=== PATIENT | female | born 1940 | race Caucasian/White ===

== ENCOUNTER 2017-01-26 22:03 | Emergency (ER) | payer MEDICARE ==
[~2017-01-26 22:03] MED LIST: ALPHAGAN OPH; ARTHRITIS CREAM TOP; ASAB PO; ATEN25 PO; FLEXERIL5 MG PO; HALF81 PO; MIACALCIN NAS; NEXIUM OTC PO; NEXIUM20 M1 PO; NEXIUM40 PO; P5 PO; PRAVACHOL80 MG PO; PROLIA60 MG/1 ML SC; SYSTANE OP; VITC500 PO; VITD PO; XALAT OPH; ZOCOR10 PO; ZOCOR40 PO
[2017-01-26 22:47] LABS: BASOPHILS 0.1 %; BASOPHILS ABSOLUTE 0.02 10/3/uL (0.0-0.16); EOSINOPHILS 0 %; ER CBC TAT 0 Hrs 08 Mins; HEMATOCRIT 39.5 % (36.0-48.0); IMMATURE GRANULOCYTES 0.2 %; IMMATURE GRANULOCYTES ABSOLUTE 0.03 10/3/uL (0.0-0.11); LYMPHOCYTES 7.1 %; LYMPHOCYTES ABSOLUTE 1.06 10/3/uL (0.67-4.30); MEAN CORPUS HGB CONC 32.9 g/dL (32.0-36.0); MEAN CORPUSCULAR HEMOGLOB 29.1 pg (26.0-34.0); MEAN PLATELET VOLUME 9.4 fL (9.2-13.0); MONOCYTES 4.6 %; MONOCYTES ABSOLUTE 0.68 10/3/uL (0.21-1.20); NEUTROPHILS ABSOLUTE 13.07 10/3/uL (2.02-8.40); PLATELET COUNT 320 10/3/uL (150-400); RBC DISTRIBUTION WIDTH 13.7 % (12.0-16.0); RED CELL COUNT 4.47 10/6/uL (4.0-5.6); WHITE BLOOD CELLS 14.9 10/3/uL (4.5-10.5)
[2017-01-26 22:49] LABS: MANUAL DIFF NO %; MEAN CORPUSCULAR VOLUME 88.4 fL (80-100)
[2017-01-26 23:03] LABS: A/G RATIO 0.9 (0.7-1.9); ALBUMIN 3.1 G/DL (3.5-5.0); BUN (BLOOD UREA NITROGEN) 16 MG/DL (6-23); CALCIUM, SERUM 8.7 MG/DL (8.5-10.4); CHLORIDE, SERUM 98 MMOL/L (96-112); CO2 (CARBON DIOXIDE) 29 MMOL/L (24-34); CREATININE 0.72 MG/DL (0.55-1.02); GFR AFRICAN AMERICAN 92 ML/MIN (>=60); GFR NON AFRICAN AMERICAN 80 ML/MIN (>=60); GLOBULIN 3.3 G/DL (2.5-4.1); POTASSIUM, SERUM 3.2 MMOL/L (3.5-5.3); SGOT(AST) 19 U/L (5-40); SGPT(ALT) 21 U/L (5-65); TOTAL BILIRUBIN 0.6 MG/DL (0-1.2); TOTAL PROTEIN 6.4 G/DL (6.0-8.5); TROPONIN I <0.02 NG/ML (<0.05)
[2017-01-26 23:04] LABS: ALKALINE PHOSPHATASE 112 U/L (45-117); GLUCOSE, SERUM 133 MG/DL (60-99); SODIUM, SERUM 135 MMOL/L (135-148)
[2017-01-27 00:33] LABS: ASCORBIC ACID (UR NOT ORDER) NEG (NEG); BILIRUBIN, URINE NEGATIVE (NEG); ER URINALYSIS TAT 0 Hrs 28 Mins; KETONE, URINE TRACE MG/DL (NEG); LEUKOCYTE ESTERASE(NOT OR MOD (NEG); NITRITE (URINE) NEG (NEG); WBC (NOT ORDERED) (RFLEX) 23 (0-5)
[2017-07-16] MEDS ORDERED: VITAMIN B-122500 MCG SL (09:19)
== END 2017-01-27 02:02 | disposition home or self-care (01) ==
LOC: ER 22:03
PROVIDERS: Emergency Medicine
DX: N39.0 Urinary tract infection, site not specified (principal); I10 Essential (primary) hypertension; Z95.1 Presence of aortocoronary bypass graft; Z79.82 Long term (current) use of aspirin; Z79.899 Other long term (current) drug therapy
CPT/HCPCS: 70450; 71020; 80048; 80053; 81001; 83735; 84484; 85025; 85610; 85730; 87040; 87077; 87086; 87186; 93005; 96374; 99285; J0360

== ENCOUNTER 2017-03-06 13:32 | Inpatient (IN) | payer MEDICARE ==
--- NOTE | ~2017-03-06 | HP ---
History And Physical [place] [id number] [place]. [address] NAME: ANGEL JAMIL : 38 STATUS : ADM Radha PAT#: [id number] AGE: 77 ADM/REG DATE : 03/06/17 MR#: [id number] REPORT SERV DATE: 03/07/17 DICTATED BY: BERKLEY WIHTLOCK DATE: 03/06/17 REPORT STATUS : Draft TRANSCRIBED BY: MODL DATE: 03/06/17 DATE OF ADMISSION: 03/06/2017 IDENTIFYING DATA: A 77-year-old white female, whose PCP is Dr. Ankur Naranjo; marketing data specialist, Dr. Ca; GI, Dr. Mendoza; Ear, Nose, and Throat, Dr. Nam; and carpenter general, Dr. Dan. CHIEF COMPLAINT: Confusion. HISTORY OF PRESENT ILLNESS: This history of present illness is obtained by talking to the patient as well as the son and daughter at bedside as well as the ER provider and reviewing [employer] and [employer]. The patient's son states that on 01/26/2017, the patient was seen here in the emergency room for confusion. I asked him to describe the confusion. He states that his mom had been talking about relatives as if they were alive and asking about them. She also was talking about events that were from long ago as if they were recent, and she had a bad headache and she was very weak. At that time, he says she was diagnosed with high blood pressure and a urinary infection. She was given some antibiotic. He does not recall which one, and by the next day, she was lying on the couch. He saw her having sudden shakiness all over, face drawn to the left, not breathing. He did some CPR. He thinks her episode lasted less than 10 minutes. 911 took her to the ER at [facility] where she reportedly awoke slowly, was confused, pulling her IV out. They describe she was in the neuro ICU initially and had some scans of her brain. They said there was a small little spot in the brain, and when I asked him if it was described as a meningioma such as our CT brain here mentions today, they said yes. They were reportedly told by the staff at [facility] that this small lesion in the brain would not likely cause this problem. She was started on Keppra and blood pressure medicine, lisinopril. She was released home with home health nurse and physical therapy, did okay for a couple of weeks, then for the last week or so once again confused, talking about things from the past. They send in a urinalysis, and they were told it was okay. The patient never had dysuria for the current episode nor the first one as far as the urinary tract infection. Today, on the phone and in person, they stated it was hard to understand some of her speech and she seemed to have a difficult time getting sentences out. They brought to the emergency room because of this. On question, over the last few years, she has had a generalized cognitive decline. She has not been allowed by them to drive for couple of years, has not been able to cook for quite some time. She is just too weak to get up and around, has not been able to pay her own bills for the last two years because she would misplace them and not keep up with them. She has not been able to be in control of her medications for the last year and a half because according to the daughter she just could not keep up with her pills. She can still dress herself most of the time, although it sounds like they assist her some. She bathes herself. She goes to and from the bathroom. On review of systems, she has chronic back pain, constipation, and some chronic peripheral History And Physical [address] [place]. [address] NAME: ANGEL JAMIL : 38 STATUS : ADM Radha PAT#: [id number] AGE: 77 ADM/REG DATE : 03/06/17 MR#: [id number] REPORT SERV DATE: 03/07/17 DICTATED BY: BERKLEY WHITLOCK DATE: 03/06/17 REPORT STATUS : Draft TRANSCRIBED BY: DAIN DATE: 03/06/17 edema. They describe she has lost about 20 pounds in the last year. She has had a couple of falls lately. They deny any fever, cough, nasal congestion, chest pain, shortness of breath, abdominal pain, nausea, vomiting, diarrhea, rectal bleeding, melena, dysuria, urinary hesitancy, rash, or tick bites. She has been anorexic for three days. PAST MEDICAL HISTORY: No known drug allergies. They deny any history of diabetes, asthma, COPD, stroke, peptic ulcer, liver disease, chronic kidney disease, kidney stones, or thyroid disease. She has had coronary bypass in 1995 and a CTA of her coronary arteries in 05/2011 showed some loss of saphenous vein grafts and questionable obstruction to the LITTLE to the LAD. She has a history of scoliosis, osteoporosis, and rheumatoid arthritis. She has hypertension but only for the last month. HOME MEDICATIONS: Currently, aspirin 81 mg daily; Tenormin 25 mg every evening, reportedly this is not a new medicine; brimonidine 0.2% one drop both eyes b.i.d.; vitamin B12 of 2500 mcg daily; Flexeril 10 mg every bedtime; Cymbalta 30 mg daily; vitamin D 50,000 units every other Saturday; Nexium 20 mg daily; Keppra 500 mg b.i.d.; lisinopril 20 mg daily, which was a medication that was recently started when she was at [facility]; Centrum vitamin once a day; Deltasone; prednisone 10 mg daily, which is a chronic stable dose; Forteo 20 mcg subcu every evening; and tramadol 50 mg p.o. b.i.d. SURGICAL HISTORY: She has had coronary bypass, cholecystectomy, rotator cuff repair, the patient has no recollection of which shoulder; and she has had a prior hysterectomy she thinks. SOCIAL HISTORY: She currently lives with family. They are staying with her 27/05. She is retired from the [employer]. 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 She has no tobacco or alcohol intake history. She has been using a walker recently. FAMILY HISTORY: Mother reportedly of a heart attack. Dad with stroke and a heart attack. This information is provided by the daughter as the patient had no recollection. The patient's siblings with report of a high heart attack, breast cancer, and multiple myeloma. Her children with PRATHER and myocardial infarction, although again the patient had no recollection of this herself. The daughter provided me this information. DIAGNOSTIC DATA: Chest x-ray as a PA and lateral appears unremarkable other than evidence of previous sternotomy per my interpretation. EKG done today at 1351 reveals sinus rhythm with T-wave inversions V1 through V4, and I and aVL but similar to EKG on 01/26/2017 per my interpretation. Sodium 142, potassium 3.2, chloride 103, CO2 is 32, BUN 24, creatinine 0.94, glucose 105, calcium 9.9, and albumin 3.0. The rest of the CMP is normal. Troponin less than 0.02. White count is 14.7, hemoglobin 12.6, and platelets are 363,000. Urinalysis tonight as a clean catch, urobilinogen is 4, it is otherwise normal. History And Physical [address] [place]. [address] NAME: ANGEL JAMIL : 38 STATUS : ADM Radha PAT#: [id number] AGE: 77 ADM/REG DATE : 03/06/17 MR#: [id number] REPORT SERV DATE: 03/07/17 DICTATED BY: BERKLEY WHITLOCK DATE: 03/06/17 REPORT STATUS : Draft TRANSCRIBED BY: DAIN DATE: 03/06/17 PHYSICAL EXAMINATION: VITAL SIGNS: Temp 98, pulse 70, respirations 16, blood pressure 115/70, and O2 saturation is 97% on room air. GENERAL: A well-developed, older female, who appears in no acute distress. HEENT: Head is atraumatic. Pupils are equal, round, and reactive to light. Extraocular motions are intact. No scleral icterus noted. Ears, externally unremarkable. No inflammatory changes. Normal canals and TMs at this time. Nose, noninflamed externally. Septum midline. Nares patent. Mouth, moist. Good gag. No redness of the throat, gums, or lips. NECK: Supple. No lymph node or thyroid enlargement. The carotids have good pulses. No bruits. LUNGS: Clear. Good air flow. No wheezes, no rhonchi. Normal respiratory effort. HEART: Regular rate and rhythm without murmur, gallop, click, or rub. ABDOMEN: Bowel sounds are positive. Soft, nondistended, nontender. No masses. No organomegaly. EXTREMITIES: Warm, good pulses. No clubbing, no cyanosis, no edema. No actively inflamed skin or joints. NEUROLOGIC: She is alert. She is oriented to her full name. She remembered that she was at [facility], but it took her a moment to come up with that. She was able to give me the month, but when I asked her the year, she kept giving me the month that were different from the current one. Her motor strength is 3/5 in all four extremities and symmetrical. No Babinski. No clonus noted. Cranial nerves 2 through 12 grossly normal. ASSESSMENT: 1. 1-1/2 to 2 years of progressive memory loss, cognitive decline with a recent seizure, described by family, and intermittent worsening of her confusion with possible some speech difficulties today. It sounds like this is progressive underlying dementia with the possibility of some seizures as part of that less likely an acute stroke. 2. Hypokalemia. 3. Leukocytosis without a clear etiology. 4. See past medical history. PLAN: We will put her on observation status. We will get the recent [facility] records. We will ask Neurology to see her. We will check a couple of blood cultures. We will check a sedimentation rate and a CRP. We will also get a followup on that white count. We will check B12, HIV, ammonia level, RPR, sedimentation rate, CRP. Son and daughter updated at the bedside at this time. RSG/MODL Berkley Whitlock M.D. / [id number] History And Physical [address] [address] NAME: ANGEL JAMIL : 38 STATUS : ADM Radha PAT#: [id number] AGE: 77 ADM/REG DATE : 03/06/17 MR#: [id number] REPORT SERV DATE: 03/07/17 DICTATED BY: BERKLEY WHITLOCK DATE: 03/06/17 REPORT STATUS : Draft TRANSCRIBED BY: MODL DATE: 03/06/17 CC: Diego Self Jr, MD Patrick Ryan
--- NOTE | ~2017-03-06 | CN ---
Consultation Report [facility] [address] [place]. [address] NAME: ANGEL JAMIL : 38 STATUS : ADM IN [facility]#: [id number] AGE: 77 ADM/REG DATE : 03/07/17 MR#: [id number] REPORT SERV DATE: 03/07/17 DICTATED BY: DATE: REPORT STATUS : Draft TRANSCRIBED BY: MODL DATE: 03/07/17 DATE OF CONSULTATION: 03/07/2017 REASON FOR CONSULT: Encephalopathy. HISTORY OF PRESENT ILLNESS: This is a 77-year-old female who presented to [facility] secondary to ongoing encephalopathy. The patient roughly about a month ago was noted to have encephalopathy with delusional thought as well as possible hallucination. Also, the patient was noted to have loss of consciousness and shaking all over and not breathing and the patient's son performed CPR while awaiting EMS arrival where the patient's symptoms lasted less than 10 minutes. The patient was taken over to [facility] and was initially stayed in the neuro intensive care. The patient was subsequently diagnosed with possible seizure and was placed on Keppra with improvement of symptom and subsequently discharged. The patient was also noted to have a meningioma at that time. After hospital discharge, the patient was not noted to have stable mentation for about two weeks and was noted to have a gradual return of confusion as well as encephalopathy and hallucination where the patient keeps on talking about people who are as well as appeared to have seeing things. The patient was not noted to have any significant changes in medication recently except for initiation of lisinopril as well as Keppra. The patient was not noted to have any fever, chill, nausea, vomiting, chest pain, or shortness of breath prior to the hospitalization. The patient's son does report the patient for the past year does appear to have memory difficulties with the combination of long-term memory with the patient forgetful of things that happened in the past as well as recent memory. The patient has not been driving for the past two years secondary to previous surgery in the past. Afterwards, the patient's family drives her around. The patient's son manages the patient's finances. The patient does still cook at home and has recently been doing some marie. The patient does have ambulatory difficulties where the patient normally ambulates with a walker, but recently seems to be getting worse and appeared to have bilateral lower extremity weakness with the right leg appeared to be weaker than the left. No upper extremity weakness was otherwise noted at the time of evaluation. The patient's son also reports the patient appeared to have difficulty getting words out, but does not seem to have significant dysarthria. PAST MEDICAL HISTORY: Significant for history of recent [place] hospitalization with possible history of seizure as well as cognitive difficulties over the past year. The patient was noted to have also history of coronary artery disease, history of scoliosis, osteoporosis, rheumatoid arthritis, hypertension. REVIEW OF SYSTEMS: Negative except for those mentioned in the HPI. SOCIAL HISTORY: Denies tobacco, alcohol, or recreational drug usage. The patient ambulates with a walker normally. FAMILY HISTORY: Significant for coronary artery disease, stroke, myocardial infarction, Consultation Report [address] [place]. [address] NAME: ANGEL JAMIL : 38 STATUS : ADM IN [facility]#: [id number] AGE: 77 ADM/REG DATE : 03/07/17 MR#: [id number] REPORT SERV DATE: 03/07/17 DICTATED BY: DATE: REPORT STATUS : Draft TRANSCRIBED BY: MODL DATE: 03/07/17 breast cancer, and multiple myeloma. ALLERGIES: AT THE TIME OF EVALUATION, THE PATIENT WAS NOTED TO HAVE NO KNOWN DRUG ALLERGIES. MEDICATIONS: The patient's home medications consist of Keppra, lisinopril, aspirin, atenolol, brimonidine ophthalmic solution, vitamin B12, Flexeril, Cymbalta, vitamin D, Nexium, multivitamin, prednisone 10, Forteo pen subcutaneous, and Ultram. REVIEW OF SYSTEMS: Unable to be provided by the patient's secondary to encephalopathy, but per family, it is otherwise negative. PHYSICAL EXAMINATION: VITAL SIGNS: At the time of evaluation, the patient was noted to have overnight vital signs with a T-max of 98.2, heart rate of 55 to 72, respirations of 16 to 18, and blood pressure of 142-190/65-98. GENERAL: Alert, well developed, well nourished, in no acute distress. CARDIOVASCULAR: Regular rate and rhythm. No carotid bruits were otherwise auscultated. PULMONARY: Clear to auscultation bilaterally. NEUROLOGIC: Generally, the patient is alert, oriented to place, not to year, oriented to month. The patient initially reports she does not recognize her son and subsequently was able to recognize her son at the time of evaluation. The patient was noted to have a minimal dysarthria. No significant aphasia. Decreased attention span at the time of evaluation. Psychomotor retardation was also noted. Difficulty to follow-through on commands for registration and recall. She is able to follow simple commands and has difficulties with complex commands at the time of evaluation. Cranial nerves II through XII, pupils are equal, round, and reactive to light. Horizontal eye movement was noted to be intact with intact blink to threat response. Reports symmetrical facial sensation, but is otherwise unable to provide details. Midline tongue. Normal palatal movement. Mildly decreased hearing in bilateral ears. The patient was noted to have symmetrical facial expression. The patient demonstrated decreased range of motion in the right shoulder, which the patient as well as the patient's son report secondary to recent falls, otherwise, the patient demonstrated 4+ to 5-/5 for left upper extremity strength. No clear resting tremor was otherwise noted. The patient reports symmetrical sensation bilaterally. Reports mild asymmetric sensation in bilateral lower extremities, but she is noted to have difficulties reporting details. Appeared to have some decreased sensation compared to bilateral upper extremities and lower extremities. The patient demonstrated ability to move bilateral lower extremities against gravity roughly equally, otherwise, demonstrated no significant ataxia on bilateral upper extremities. Yeidrh-bd-bitl examination, gait was not evaluated as the patient normally ambulates with a walker. Deep tendon reflexes were 2+ in bilateral upper extremities, 1+ in bilateral lower extremities. Downgoing toes on bilateral plantar reflexes. LABORATORY STUDIES: Demonstrated white blood cell count of 9.5, hemoglobin of 11.1, hematocrit of 34.2, platelet count of 327. Chemistry panel: Sodium 146, potassium 2.9, Consultation Report [place] [id number] [facility] [place]. [address] NAME: ANGEL JAMIL : 38 STATUS : ADM IN [facility]#: [id number] AGE: 77 ADM/REG DATE : 03/07/17 MR#: [id number] REPORT SERV DATE: 03/07/17 DICTATED BY: DATE: REPORT STATUS : Draft TRANSCRIBED BY: MODL DATE: 03/07/17 chloride 107, bicarb 31, BUN of 20, creatinine 0.81, glucose of 103, calcium of 8.9, magnesium 1.5. Serum vitamin B12 of 2124. Ammonia level of 11. TSH of 0.644. C-reactive protein of 11.1. Sed rate of 17. Urinalysis demonstrated negative leukocyte esterase and negative nitrites. IMAGING: CT scan of the brain demonstrated mild generalized atrophy as well as possible meningioma, but otherwise no acute process was seen. IMPRESSION: Encephalopathy with recent episodes of hallucination as well as confusion, hospitalized at [place] roughly a month ago, and placed on Keppra for presumed seizures with symptom improve for two weeks and subsequently recurred. Concern for also baseline dementia. Differential diagnosis includes possible baseline dementia with seizure versus dementia versus behavior issues versus encephalopathy of unknown etiology, so we will check laboratory study, EEG, MRI of the brain with and without contrast. We will start the patient on trial of Aricept 5 mg p.o. at bedtime. The patient was also noted to be on long- term prednisone dose and was noted to have recent recurrent encephalopathy. We will also consider possible lumbar puncture if other diagnostic study does not reveal any etiology for the patient's confusion. RECOMMENDATION: 1. MRI of the brain with and without contrast. 2. PT/OT to evaluate and treat. 3. EEG. 4. Serum RPR, HIV, thiamine, folate, TSH, free T4, CRP, sed rate, JACLYN, as well as procalcitonin level. 5. Aricept 5 mg p.o. at bedtime. 6. May consider lumbar puncture. [facility]/MODL Toni Chatterjee MD / [id number] CC: Diego Self Jr, MD Patrick Rhyne, M.D.
--- NOTE | ~2017-03-06 | DS ---
Discharge Summary [facility] [address] [facility] [place]. [address] NAME: ANGEL JAMIL : 38 STATUS : ADM IN [facility]#: [id number] AGE: 77 ADM/REG DATE : 03/07/17 MR#: [id number] REPORT SERV DATE: 03/13/17 DICTATED BY: KINGSLEY KATZ DATE: 03/12/17 REPORT STATUS : Draft TRANSCRIBED BY: MODAldo DATE: 03/12/17 ADMISSION DATE: 03/07/2017 DISCHARGE DATE: 03/12/2017 PROCEDURES DONE: 1. 03/06/2017, CT of the brain without contrast, no acute intracranial pathology identified. Moderate diffuse cerebral involutional changes and mild deep white matter chronic microvascular ischemic change. 2. 03/06/2017, CT chest x-ray, PA and lateral, prior CABG. No acute process demonstrated. 3. 03/07/2017, MRI of the brain, chronic small vessel ischemic changes and atrophy minimally progressed from 2016. No acute finding. Stable meningioma arising from the midline region of the anterior clinoids. 4. 03/08/2017, x-ray spine, successful fluoroscopic lumbar puncture at L3-L4 with 11 mL of clear CSF collected, as described, opening pressure 4 cm of water. 5. 03/07/2017, EEG report shows EEG study obtained during awake and drowsy state may be considered abnormal secondary to presence of underlying background slowing as well as disorganized background concern for possible metabolic encephalopathy versus underlying EVENT DECORATOR abnormalities versus possible postictal state. Clinical correlation recommended. CONSULT: Dr. Chatterjee for Neurology. REASON FOR ADMISSION: Confusion. HISTORY OF HOSPITAL STAY: A 77-year-old white female with past medical history of hypertension, depression, seizures, history of rheumatoid arthritis on steroids, coronary artery disease, status post CABG, presenting with confusion. The patient was being admitted for further evaluation and confusion. CT of the head was negative as well as MRI. More importantly, there was a question if the patient is having questionable new onset of seizures. EEG was done which was questionable. Nonetheless, the patient was continued on her Keppra. More importantly, the patient is demonstrating symptoms of dementia. The patient was started on Aricept and thiamine. In addition, the patient was also developing cough with her lisinopril. She was switched to valsartan 80 mg p.o. daily. At which point, the patient's blood pressure has been stable. At this point in time, the patient is discharged for physical therapy. In addition, the patient has been advised to follow up with [facility] within three to four weeks as well as follow up with primary care within two weeks' time. MEDICATION UPON DISCHARGE: 1. Aspirin 81 mg daily. 2. Tenormin 25 mg p.o. daily. 3. Brimonidine 0.2 ophthalmic drops one drop ophthalmic both eyes b.i.d. 4. Vitamin B12 2500 mcg p.o. daily. 5. Cymbalta 30 mg p.o. daily. 6. Vitamin D 50,000 units p.o. q.14 days. 7. Forteo 20 mcg subcu daily. 8. Keppra 500 mg b.i.d. Discharge Summary [address] [address] NAME: ANGEL JAMIL : 38 STATUS : ADM IN [facility]#: [id number] AGE: 77 ADM/REG DATE : 03/07/17 MR#: [id number] REPORT SERV DATE: 03/13/17 DICTATED BY: KINGSLEY KATZ DATE: 03/12/17 REPORT STATUS : Draft TRANSCRIBED BY: DAIN DATE: 03/12/17 9. Melatonin 5 mg p.o. at bedtime. 10.Nexium 20 mg p.o. daily. 11.Thiamine 100 mg p.o. b.i.d. 12.Valsartan 80 mg p.o. daily. 13.Prednisone 10 mg p.o. daily. 14.Tylenol 650 mg p.o. q.4 hours p.r.n. 15.Flexeril 10 mg p.o. at bedtime. 16.Colace 100 mg p.o. b.i.d. 17.Senna 2 tabs p.o. at bedtime p.r.n. DIAGNOSES UPON DISCHARGE: 1. Confusion secondary to dementia. 2. Dementia. 3. History of seizures, on Keppra. 4. Rheumatoid arthritis. 5. History of coronary artery disease, status post coronary artery bypass graft. 6. Hypertension. [facility]/DAIN Kingsley Katz MD / [id number] CC: MD Ankur Delgado M.D.
--- NOTE | ~2017-03-06 | EEG ---
Electroencephalogram [place] [id number] [place]. [address] NAME: ANGEL JAMIL : 38 STATUS : ADM IN PAT#: [id number] AGE: 77 ADM/REG DATE : 03/07/17 MR#: [id number] REPORT SERV DATE: 03/07/17 DICTATED BY: DATE: REPORT STATUS : Draft TRANSCRIBED BY: MODL DATE: 03/07/17 NEUROLOGY EEG REPORT CLINICAL INDICATION: Encephalopathy. DESCRIPTION: This EEG was performed using 10/20 electrode placement system. During the EEG study, symmetric background activity was noted with a predominant occipital rhythm of roughly 7 to 8 hertz. Underlying delta slowing was also seen during the EEG study. In addition, disorganized EEG background was observed during the entire EEG study. Photic stimulation was performed. No clear driving response was otherwise noted. Hyperventilation was not performed during the EEG study secondary to the patient's mental status as well as underlying medical condition. The patient achieved drowsy state during the EEG study. No electrographic seizure was otherwise noted. No focal abnormality was seen. INTERPRETATION: This EEG study obtained during awake and drowsy state may be considered abnormal secondary to presence of underlying background slowing as well as disorganized background concerning for possible metabolic encephalopathy versus underlying STATION REPAIRER abnormalities versus possible postictal state. Clinical correlation is recommended. [facility]/DAIN Toni Chatterjee MD / [id number] CC: Diego Self Jr, MD Patrick Rhyne, M.D.
[2017-03-06 14:11] LABS: BASOPHILS 0.3 %; BASOPHILS ABSOLUTE 0.04 10/3/uL (0.0-0.16); EOSINOPHILS 0.3 %; EOSINOPHILS ABSOLUTE 0.05 10/3/uL (0.0-0.53); ER CBC TAT 0 Hrs 09 Mins; HEMATOCRIT 39.8 % (36.0-48.0); HEMOGLOBIN 12.6 g/dL (12.0-16.0); IMMATURE GRANULOCYTES 0.3 %; IMMATURE GRANULOCYTES ABSOLUTE 0.04 10/3/uL (0.0-0.11); LYMPHOCYTES ABSOLUTE 0.89 10/3/uL (0.67-4.30); MANUAL DIFF NO %; MEAN CORPUS HGB CONC 31.7 g/dL (32.0-36.0); MEAN CORPUSCULAR VOLUME 91.7 fL (80-100); MEAN PLATELET VOLUME 9.2 fL (9.2-13.0); MONOCYTES 4.3 %; MONOCYTES ABSOLUTE 0.63 10/3/uL (0.21-1.20); NEUTROPHILS 88.8 %; NEUTROPHILS ABSOLUTE 13.08 10/3/uL (2.02-8.40); PLATELET COUNT 363 10/3/uL (150-400); RBC DISTRIBUTION WIDTH 14.1 % (12.0-16.0); RED CELL COUNT 4.34 10/6/uL (4.0-5.6); WHITE BLOOD CELLS 14.7 10/3/uL (4.5-10.5)
[2017-03-06 14:25] LABS: ALKALINE PHOSPHATASE 103 U/L (45-117); CALCIUM, SERUM 9.9 MG/DL (8.5-10.4); CHLORIDE, SERUM 103 MMOL/L (96-112); CO2 (CARBON DIOXIDE) 32 MMOL/L (24-34); CREATININE 0.94 MG/DL (0.55-1.02); GFR AFRICAN AMERICAN 67 ML/MIN (>=60); GFR NON AFRICAN AMERICAN 58 ML/MIN (>=60); GLOBULIN 3.1 G/DL (2.5-4.1); GLUCOSE, SERUM 105 MG/DL (60-99); POTASSIUM, SERUM 3.2 MMOL/L (3.5-5.3); SGOT(AST) 13 U/L (5-40); SGPT(ALT) 17 U/L (5-65); SODIUM, SERUM 142 MMOL/L (135-148); TOTAL BILIRUBIN 0.4 MG/DL (0-1.2); TOTAL PROTEIN 6.1 G/DL (6.0-8.5); TROPONIN I <0.02 NG/ML (<0.05)
[2017-03-06 14:26] LABS: BUN (BLOOD UREA NITROGEN) 24 MG/DL (6-23)
[2017-03-06 15:51] LABS: ASCORBIC ACID (UR NOT ORDER) NEG (NEG); BILIRUBIN, URINE NEGATIVE (NEG); ER URINALYSIS TAT 0 Hrs 27 Mins; KETONE, URINE NEGATIVE (NEG); LEUKOCYTE ESTERASE(NOT OR NEG (NEG); NITRITE (URINE) NEG (NEG); WBC (NOT ORDERED) (RFLEX) < 1 (0-5)
[2017-03-06] MEDS ORDERED: ULTRAM50 PO (16:49)
[2017-03-06] MEDS ORDERED: P10 PO (16:49)
[2017-03-06] MEDS ORDERED: NEXIUM20 M1 PO (16:49)
[2017-03-06] MEDS ORDERED: KEPPRA500 PO (16:50)
[2017-03-06] MEDS ORDERED: PRIN20 PO (16:50)
[2017-03-06] MEDS ORDERED: CYMBALTA30 PO (16:50)
[2017-03-06] MEDS ORDERED: ASAB PO (16:50)
[2017-03-06] MEDS ORDERED: ATEN25 PO (16:51)
[2017-03-06] MEDS ORDERED: CENTRUM PO (16:51)
[2017-03-06] MEDS ORDERED: FLEX PO (16:51)
[2017-03-06] MEDS ORDERED: FORTEO SC (16:52)
[2017-03-06] MEDS ORDERED: VITD PO (16:52)
[2017-03-06] MEDS ORDERED: BRIMONIDINE0.2 % OPH (16:52)
[2017-03-06] MEDS ORDERED: CYANO1000T PO (16:54)
[2017-03-07 04:06] LABS: BASOPHILS 0.3 %; BASOPHILS ABSOLUTE 0.03 10/3/uL (0.0-0.16); EOSINOPHILS 0.9 %; EOSINOPHILS ABSOLUTE 0.09 10/3/uL (0.0-0.53); HEMOGLOBIN 11.1 g/dL (12.0-16.0); IMMATURE GRANULOCYTES 0.2 %; IMMATURE GRANULOCYTES ABSOLUTE 0.02 10/3/uL (0.0-0.11); LYMPHOCYTES 16.8 %; MEAN CORPUS HGB CONC 32.5 g/dL (32.0-36.0); MEAN CORPUSCULAR HEMOGLOB 29.1 pg (26.0-34.0); MEAN CORPUSCULAR VOLUME 89.5 fL (80-100); MEAN PLATELET VOLUME 9.1 fL (9.2-13.0); MONOCYTES 7.4 %; MONOCYTES ABSOLUTE 0.71 10/3/uL (0.21-1.20); NEUTROPHILS 74.4 %; NEUTROPHILS ABSOLUTE 7.09 10/3/uL (2.02-8.40); PLATELET COUNT 327 10/3/uL (150-400); RBC DISTRIBUTION WIDTH 14.2 % (12.0-16.0); RED CELL COUNT 3.82 10/6/uL (4.0-5.6); WHITE BLOOD CELLS 9.5 10/3/uL (4.5-10.5)
[2017-03-07 04:07] LABS: HEMATOCRIT 34.2 % (36.0-48.0); MANUAL DIFF NO %
[2017-03-07 05:18] LABS: CHLORIDE, SERUM 107 MMOL/L (96-112); CO2 (CARBON DIOXIDE) 31 MMOL/L (24-34); CREATININE 0.81 MG/DL (0.55-1.02); GFR AFRICAN AMERICAN 80 ML/MIN (>=60); GFR NON AFRICAN AMERICAN 69 ML/MIN (>=60); GLUCOSE, SERUM 103 MG/DL (60-99); SODIUM, SERUM 146 MMOL/L (135-148)
[2017-03-07 05:23] LABS: BUN (BLOOD UREA NITROGEN) 20 MG/DL (6-23); C-REACTIVE PROTEIN 11.1 MG/L (<8.0); CALCIUM, SERUM 8.9 MG/DL (8.5-10.4); POTASSIUM, SERUM 2.9 MMOL/L (3.5-5.3); ULTRASENSITIVE TSH 0.644 MCIU/ML (0.358-3.740)
[2017-03-07 07:30] LABS: SED RATE 17 MM/HR (0-20)
[2017-03-08 10:26] LABS: BASOPHILS 0.4 %; BASOPHILS ABSOLUTE 0.05 10/3/uL (0.0-0.16); EOSINOPHILS 1.4 %; EOSINOPHILS ABSOLUTE 0.17 10/3/uL (0.0-0.53); IMMATURE GRANULOCYTES 0.2 %; IMMATURE GRANULOCYTES ABSOLUTE 0.03 10/3/uL (0.0-0.11); LYMPHOCYTES 25.9 %; LYMPHOCYTES ABSOLUTE 3.13 10/3/uL (0.67-4.30); MEAN CORPUS HGB CONC 32.1 g/dL (32.0-36.0); MEAN CORPUSCULAR VOLUME 90.3 fL (80-100); MEAN PLATELET VOLUME 9.4 fL (9.2-13.0); MONOCYTES 5.8 %; NEUTROPHILS 66.3 %; PLATELET COUNT 409 10/3/uL (150-400); RBC DISTRIBUTION WIDTH 14.3 % (12.0-16.0); WHITE BLOOD CELLS 12.1 10/3/uL (4.5-10.5)
[2017-03-08 10:27] LABS: HEMATOCRIT 43.6 % (36.0-48.0); MANUAL DIFF NO %; RED CELL COUNT 4.83 10/6/uL (4.0-5.6)
[2017-03-08 10:52] LABS: CALCIUM, SERUM 9.6 MG/DL (8.5-10.4); CHLORIDE, SERUM 109 MMOL/L (96-112); CO2 (CARBON DIOXIDE) 29 MMOL/L (24-34); CREATININE 1.09 MG/DL (0.55-1.02); FREE T4 1.27 NG/DL (0.76-1.46); GFR AFRICAN AMERICAN 56 ML/MIN (>=60); GFR NON AFRICAN AMERICAN 48 ML/MIN (>=60); GLUCOSE, SERUM 115 MG/DL (60-99); SODIUM, SERUM 147 MMOL/L (135-148)
[2017-03-08 10:54] LABS: BUN (BLOOD UREA NITROGEN) 16 MG/DL (6-23); POTASSIUM, SERUM 3.1 MMOL/L (3.5-5.3)
[2017-03-08 10:55] LABS: C-REACTIVE PROTEIN 6.4 MG/L (<8.0)
[2017-03-08 11:07] LABS: PROCALCITONIN 0.14 ng/mL (<0.5)
[2017-03-08 12:53] LABS: ANA TITER <1:40 TITER
[2017-03-08 15:48] LABS: CSF APPEARANCE (NOT ORD) CLEAR (CLEAR); CSF BASO 0 % (NO REF RANGE); CSF COLOR (NOT ORD) COLORLESS (COLORLESS); CSF EOS 0 % (0-1); CSF LYMPH (NOT ORD) 25 % (28-96); CSF MONO 56 % (16-56); CSF RBC (NOT ORD) 307 MM3 (NO REFERENCE); CSF SEGS (NOT ORD) 19 % (0-7); CSF WBC (NOT ORD) 2 /uL (0-10); CSF XANTHROCHROMIA NEG (NEG)
[2017-03-10 05:50] LABS: BASOPHILS 0.3 %; BASOPHILS ABSOLUTE 0.03 10/3/uL (0.0-0.16); EOSINOPHILS 1.5 %; EOSINOPHILS ABSOLUTE 0.14 10/3/uL (0.0-0.53); HEMOGLOBIN 12.1 g/dL (12.0-16.0); IMMATURE GRANULOCYTES 0.2 %; IMMATURE GRANULOCYTES ABSOLUTE 0.02 10/3/uL (0.0-0.11); LYMPHOCYTES 17.5 %; LYMPHOCYTES ABSOLUTE 1.68 10/3/uL (0.67-4.30); MEAN CORPUS HGB CONC 32.2 g/dL (32.0-36.0); MEAN CORPUSCULAR HEMOGLOB 29.2 pg (26.0-34.0); MEAN CORPUSCULAR VOLUME 90.6 fL (80-100); MEAN PLATELET VOLUME 9.8 fL (9.2-13.0); MONOCYTES 7.8 %; MONOCYTES ABSOLUTE 0.75 10/3/uL (0.21-1.20); NEUTROPHILS 72.7 %; PLATELET COUNT 359 10/3/uL (150-400); RBC DISTRIBUTION WIDTH 14.4 % (12.0-16.0); RED CELL COUNT 4.15 10/6/uL (4.0-5.6); WHITE BLOOD CELLS 9.6 10/3/uL (4.5-10.5)
[2017-03-10 06:00] LABS: ALBUMIN 2.9 G/DL (3.5-5.0); BUN (BLOOD UREA NITROGEN) 14 MG/DL (6-23); CALCIUM, SERUM 9.2 MG/DL (8.5-10.4); CHLORIDE, SERUM 111 MMOL/L (96-112); CO2 (CARBON DIOXIDE) 31 MMOL/L (24-34); CREATININE 0.91 MG/DL (0.55-1.02); GFR AFRICAN AMERICAN 70 ML/MIN (>=60); GFR NON AFRICAN AMERICAN 60 ML/MIN (>=60); GLUCOSE, SERUM 82 MG/DL (60-99); PHOSPHORUS, SERUM 2.9 MG/DL (2.5-4.5); SODIUM, SERUM 147 MMOL/L (135-148)
[2017-03-10 06:01] LABS: HEMATOCRIT 37.6 % (36.0-48.0); MANUAL DIFF NO %
[2017-03-11 05:02] LABS: BASOPHILS 0.3 %; BASOPHILS ABSOLUTE 0.03 10/3/uL (0.0-0.16); EOSINOPHILS 0.9 %; EOSINOPHILS ABSOLUTE 0.09 10/3/uL (0.0-0.53); HEMATOCRIT 38.8 % (36.0-48.0); HEMOGLOBIN 12.5 g/dL (12.0-16.0); IMMATURE GRANULOCYTES 0.1 %; IMMATURE GRANULOCYTES ABSOLUTE 0.01 10/3/uL (0.0-0.11); LYMPHOCYTES 18.4 %; LYMPHOCYTES ABSOLUTE 1.77 10/3/uL (0.67-4.30); MEAN CORPUS HGB CONC 32.2 g/dL (32.0-36.0); MEAN CORPUSCULAR HEMOGLOB 29.3 pg (26.0-34.0); MEAN CORPUSCULAR VOLUME 91.1 fL (80-100); MEAN PLATELET VOLUME 9.7 fL (9.2-13.0); MONOCYTES 7.6 %; MONOCYTES ABSOLUTE 0.73 10/3/uL (0.21-1.20); NEUTROPHILS 72.7 %; NEUTROPHILS ABSOLUTE 6.99 10/3/uL (2.02-8.40); PLATELET COUNT 352 10/3/uL (150-400); RBC DISTRIBUTION WIDTH 14.4 % (12.0-16.0); RED CELL COUNT 4.26 10/6/uL (4.0-5.6); WHITE BLOOD CELLS 9.6 10/3/uL (4.5-10.5)
[2017-03-11 05:03] LABS: MANUAL DIFF NO %
[2017-03-11 05:21] LABS: ALBUMIN 2.8 G/DL (3.5-5.0); ALKALINE PHOSPHATASE 94 U/L (45-117); BUN (BLOOD UREA NITROGEN) 15 MG/DL (6-23); CALCIUM, SERUM 9.4 MG/DL (8.5-10.4); CHLORIDE, SERUM 111 MMOL/L (96-112); CO2 (CARBON DIOXIDE) 29 MMOL/L (24-34); CREATININE 0.88 MG/DL (0.55-1.02); GFR AFRICAN AMERICAN 72 ML/MIN (>=60); GFR NON AFRICAN AMERICAN 62 ML/MIN (>=60); GLOBULIN 2.7 G/DL (2.5-4.1); PHOSPHORUS, SERUM 3.6 MG/DL (2.5-4.5); POTASSIUM, SERUM 3.8 MMOL/L (3.5-5.3); SGOT(AST) 12 U/L (5-40); SGPT(ALT) 16 U/L (5-65); SODIUM, SERUM 147 MMOL/L (135-148); TOTAL BILIRUBIN 0.2 MG/DL (0-1.2); TOTAL PROTEIN 5.5 G/DL (6.0-8.5)
[2017-03-11 05:23] LABS: GLUCOSE, SERUM 99 MG/DL (60-99)
[2017-03-11 17:44] LABS: HSV DNA TYPE 1 Not Detected (NOTDET); HSV DNA TYPE 2 Not Detected (NOTDET)
[2017-03-11 19:05] LABS: THIAMINE 16.3 nmol/L (())
[2017-03-12 06:48] LABS: BASOPHILS 0.6 %; BASOPHILS ABSOLUTE 0.05 10/3/uL (0.0-0.16); EOSINOPHILS 1.5 %; EOSINOPHILS ABSOLUTE 0.13 10/3/uL (0.0-0.53); HEMATOCRIT 39.9 % (36.0-48.0); HEMOGLOBIN 12.8 g/dL (12.0-16.0); IMMATURE GRANULOCYTES 0.2 %; IMMATURE GRANULOCYTES ABSOLUTE 0.02 10/3/uL (0.0-0.11); LYMPHOCYTES 19.3 %; LYMPHOCYTES ABSOLUTE 1.72 10/3/uL (0.67-4.30); MEAN CORPUS HGB CONC 32.1 g/dL (32.0-36.0); MEAN CORPUSCULAR HEMOGLOB 29.2 pg (26.0-34.0); MEAN CORPUSCULAR VOLUME 90.9 fL (80-100); MEAN PLATELET VOLUME 9.9 fL (9.2-13.0); MONOCYTES 7.5 %; MONOCYTES ABSOLUTE 0.67 10/3/uL (0.21-1.20); NEUTROPHILS 70.9 %; NEUTROPHILS ABSOLUTE 6.32 10/3/uL (2.02-8.40); PLATELET COUNT 358 10/3/uL (150-400); RBC DISTRIBUTION WIDTH 14.5 % (12.0-16.0); RED CELL COUNT 4.39 10/6/uL (4.0-5.6); WHITE BLOOD CELLS 8.9 10/3/uL (4.5-10.5)
[2017-03-12 06:52] LABS: ALKALINE PHOSPHATASE 96 U/L (45-117); BUN (BLOOD UREA NITROGEN) 15 MG/DL (6-23); CALCIUM, SERUM 9.5 MG/DL (8.5-10.4); CHLORIDE, SERUM 109 MMOL/L (96-112); CO2 (CARBON DIOXIDE) 29 MMOL/L (24-34); CREATININE 0.87 MG/DL (0.55-1.02); GFR AFRICAN AMERICAN 73 ML/MIN (>=60); GFR NON AFRICAN AMERICAN 63 ML/MIN (>=60); GLOBULIN 2.9 G/DL (2.5-4.1); GLUCOSE, SERUM 88 MG/DL (60-99); PHOSPHORUS, SERUM 3.3 MG/DL (2.5-4.5); POTASSIUM, SERUM 3.6 MMOL/L (3.5-5.3); SGOT(AST) 18 U/L (5-40); SGPT(ALT) 20 U/L (5-65); SODIUM, SERUM 145 MMOL/L (135-148); TOTAL PROTEIN 5.9 G/DL (6.0-8.5)
[2017-03-12 06:53] LABS: MANUAL DIFF NO %
[2017-03-12 06:55] LABS: TOTAL BILIRUBIN 1.1 MG/DL (0-1.2)
[2017-03-12 18:32] LABS: ALBUMIN INDEX 6.6 ratio (0.0-9.0); CSF IGG SYNTHESIS RATE <0.0 mg/d (0.0-8.0); CSF IGG/ALBUMIN RATIO 0.08 ratio (0.09-0.25); CSF OLIGOCLONAL BANDS Negative (NEG); CSF OLIGOCLONAL BANDS NUMBER 0 Bands (0-1); IGG INDEX 0.53 ratio (0.28-0.66); IMMUNOGLOBULIN G, SERUM 620 mg/dL (768-1632)
[2017-07-16] MEDS ORDERED: VITAMIN B-122500 MCG SL (09:19)
== END 2017-03-13 11:59 | DRG 884 ==
LOC: ER 13:32 → CDU1 20:55 → CDU2 21:41 → 7NO 03-08 11:33
PROVIDERS: Emergency Medicine; Hospitalist; Internal Medicine; Psychiatry & Neurology Neurology
PROC: 009U3ZX Drainage of Spinal Canal, Percutaneous Approach, Diagnostic (ICD-10-PCS; principal; 2017-03-08)
PROC: B01B1ZZ Fluoroscopy of Spinal Cord using Low Osmolar Contrast (ICD-10-PCS; 2017-03-08)
DX: F03.90 Unspecified dementia, unspecified severity, without behavioral disturbance, psychotic disturbance, mood disturbance, and anxiety (principal); F05 Delirium due to known physiological condition; G40.909 Epilepsy, unspecified, not intractable, without status epilepticus; M41.9 Scoliosis, unspecified; E83.42 Hypomagnesemia; M06.9 Rheumatoid arthritis, unspecified; I10 Essential (primary) hypertension; E87.6 Hypokalemia; E53.8 Deficiency of other specified B group vitamins; I25.10 Atherosclerotic heart disease of native coronary artery without angina pectoris; M81.0 Age-related osteoporosis without current pathological fracture; Z95.1 Presence of aortocoronary bypass graft; Z79.82 Long term (current) use of aspirin; Z79.899 Other long term (current) drug therapy; Z79.52 Long term (current) use of systemic steroids; Z80.3 Family history of malignant neoplasm of breast; Z82.3 Family history of stroke; Z82.49 Family history of ischemic heart disease and other diseases of the circulatory system
CPT/HCPCS: 62270; 70450; 70553; 71020; 77003; 80048; 80053; 80069; 81001; 82040; 82042; 82140; 82607; 82746; 82784; 82784-59; 82945; 82947; 83735; 83873; 83916; 84100; 84132; 84145; 84157; 84425; 84439; 84443; 84484; 85025; 85652; 86039; 86140; 86317; 86592; 87040; 87070; 87205; 87327; 87389; 87529; 87529-59; 88112; 89051; 93005; 95816; 97110-GO; 97110-GP; 97116-GP; 97162-GP; 97165-GO; 97535-GO; 99285; A9270-GY; A9577; G8978-CK-GP; G8979-CJ-GP; J0360; J3475

== ENCOUNTER 2017-04-26 20:56 | Emergency (ER) | payer MEDICARE ==
[2017-04-26 19:11] LABS: BASOPHILS 0.1 %; BASOPHILS ABSOLUTE 0.01 10/3/uL (0.0-0.16); EOSINOPHILS 0 %; ER CBC TAT 0 Hrs 07 Mins; HEMOGLOBIN 12.7 g/dL (12.0-16.0); IMMATURE GRANULOCYTES 0.1 %; IMMATURE GRANULOCYTES ABSOLUTE 0.01 10/3/uL (0.0-0.11); LYMPHOCYTES 11.3 %; LYMPHOCYTES ABSOLUTE 1.27 10/3/uL (0.67-4.30); MEAN CORPUS HGB CONC 31.8 g/dL (32.0-36.0); MEAN CORPUSCULAR HEMOGLOB 28.8 pg (26.0-34.0); MEAN CORPUSCULAR VOLUME 90.7 fL (80-100); MEAN PLATELET VOLUME 9.4 fL (9.2-13.0); MONOCYTES 3.5 %; MONOCYTES ABSOLUTE 0.39 10/3/uL (0.21-1.20); NEUTROPHILS ABSOLUTE 9.55 10/3/uL (2.02-8.40); PLATELET COUNT 386 10/3/uL (150-400); RBC DISTRIBUTION WIDTH 14.5 % (12.0-16.0); RED CELL COUNT 4.41 10/6/uL (4.0-5.6); WHITE BLOOD CELLS 11.2 10/3/uL (4.5-10.5)
[2017-04-26 19:14] LABS: MANUAL DIFF NO %
[2017-04-26 19:19] LABS: PROTIME (NOT ORD) 12.9 SEC (12.0-14.5)
[2017-04-26 19:20] LABS: PARTIAL THROMBO TIME 26.2 SEC (22.5-37.2)
[2017-04-26 19:26] LABS: BUN (BLOOD UREA NITROGEN) 19 MG/DL (6-23); CALCIUM, SERUM 9.5 MG/DL (8.5-10.4); CHEST PAIN PROFILE TAT 0 Hrs 22 Mins; CHLORIDE, SERUM 105 MMOL/L (96-112); CO2 (CARBON DIOXIDE) 30 MMOL/L (24-34); CREATININE 0.88 MG/DL (0.55-1.02); GFR AFRICAN AMERICAN 72 ML/MIN (>=60); GFR NON AFRICAN AMERICAN 62 ML/MIN (>=60); GLUCOSE, SERUM 107 MG/DL (60-99); POTASSIUM, SERUM 3.9 MMOL/L (3.5-5.3); SODIUM, SERUM 140 MMOL/L (135-148); TROPONIN I <0.02 NG/ML (<0.05)
[~2017-04-26 20:56] MED LIST changes: +BRIMONIDINE0.2 % OPH; +CENTRUM PO; +CYANO1000T PO; +CYMBALTA30 PO; +FLEX PO; +FORTEO SC; +KEPPRA500 PO; +P10 PO; +PRIN20 PO; +ULTRAM50 PO
[2017-04-26] MEDS ORDERED: MAGOX4 PO (23:42)
[2017-04-26] MEDS ORDERED: ASAB PO (23:43)
[2017-04-26] MEDS ORDERED: ATEN25 PO (23:44)
[2017-04-26] MEDS ORDERED: BRIMONIDINE0.2 % OPH (23:44)
[2017-04-26] MEDS ORDERED: CYMBALTA30 PO (23:45)
[2017-04-26] MEDS ORDERED: ARICEPT10 PO (23:45)
[2017-04-26] MEDS ORDERED: FLEX PO (23:45)
[2017-04-26] MEDS ORDERED: FORTEO SC (23:46)
[2017-04-26] MEDS ORDERED: MELATONIN5 M1 PO (23:46)
[2017-04-26] MEDS ORDERED: KEPPRA500 PO (23:46)
[2017-04-26] MEDS ORDERED: NEXIUM20 M1 PO ×2 (23:48)
[2017-04-26] MEDS ORDERED: B1100 PO (23:49)
[2017-04-26] MEDS ORDERED: P10 PO (23:49)
[2017-04-26] MEDS ORDERED: DIOV80 PO (23:49)
[2017-04-26] MEDS ORDERED: VITD PO (23:50)
[2017-04-26] MEDS ORDERED: T PO (23:50)
[2017-04-26] MEDS ORDERED: DSS PO (23:50)
[2017-04-26] MEDS ORDERED: MCZ125 PO (23:52)
[2017-04-27 01:30] LABS: ASCORBIC ACID (UR NOT ORDER) NEG (NEG); BILIRUBIN, URINE NEGATIVE (NEG); ER URINALYSIS TAT 0 Hrs 00 Mins; KETONE, URINE TRACE MG/DL (NEG); LEUKOCYTE ESTERASE(NOT OR NEG (NEG); NITRITE (URINE) NEG (NEG); WBC (NOT ORDERED) (RFLEX) 2 (0-5)
[2017-07-16] MEDS ORDERED: VITAMIN B-122500 MCG SL (09:19)
== END 2017-04-27 02:47 | disposition home or self-care (01) ==
LOC: ER 20:56
PROVIDERS: Emergency Medicine
DX: I16.0 Hypertensive urgency (principal); F03.90 Unspecified dementia, unspecified severity, without behavioral disturbance, psychotic disturbance, mood disturbance, and anxiety; I25.10 Atherosclerotic heart disease of native coronary artery without angina pectoris; Z95.1 Presence of aortocoronary bypass graft; Z90.89 Acquired absence of other organs; Z90.710 Acquired absence of both cervix and uterus; Z88.8 Allergy status to other drugs, medicaments and biological substances; Z79.82 Long term (current) use of aspirin; Z79.52 Long term (current) use of systemic steroids; Z79.899 Other long term (current) drug therapy
CPT/HCPCS: 70450; 71020; 80048; 81001; 83735; 84484; 85025; 85610; 85730; 93005; 99285; A9270-GY

== ENCOUNTER 2017-07-17 05:53 | Day surgery (SDC) | payer MEDICARE ==
[~2017-07-17] VITALS: Ht 160 cm; Wt 54.4 kg
--- NOTE | ~2017-07-17 | EGD ---
EGD REPORT [facility] [address] [address] NAME: ANGEL GILLIAM : 36 STATUS : REG [facility]#: [id number] AGE: 77 ADM/REG DATE : 07/17/17 MR#: [id number] REPORT SERV DATE: 07/17/17 DICTATED BY: BRENNAN LOPEZ DATE: 07/17/17 REPORT STATUS : Draft [facility]ANSCRIBED BY: [facility] DATE: 07/17/17 Endoscopy Center Patient Name: Angel Gilliam Date of : 1940 Attending MD: BRENNAN LOPEZ MD Procedure Date No Time: 07/17/2017 Procedure: Colonoscopy Indications: Chronic diarrhea Referring MD: Amanda Asif Medicines: Propofol per Anesthesia Complications: No immediate complications. Procedure: Pre-Anesthesia Assessment: - ASA Grade Assessment: III - A patient with severe systemic disease. After I obtained informed consent, the scope was passed under direct vision. Throughout the procedure, the patient's blood pressure, pulse, and oxygen saturations were monitored continuously. The CF [id number] was introduced through the anus and advanced to the cecum, identified by appendiceal orifice and ileocecal valve. The colonoscopy was performed without difficulty. The patient tolerated the procedure well. The quality of the bowel preparation was good. Findings: The perianal and digital rectal examinations were normal. Internal hemorrhoids were found during retroflexion and were Grade I (internal hemorrhoids that do not prolapse). The colon (entire examined portion) appeared normal. Biopsies were taken with a cold forceps from the entire colon for evaluation of microscopic colitis. The rest of the colon was normal. Impression: - Internal hemorrhoids. - The entire examined colon is normal. Biopsied. Recommendation: - Patient has a contact number available for emergencies. The signs and symptoms of potential delayed complications were discussed with the patient. Return to normal activities tomorrow. Written discharge instructions were provided to the patient. - Regular diet. - Patient has a contact number available for emergencies. The signs and symptoms of potential delayed complications were discussed with the patient. Return to EGD REPORT [address] [address] NAME: ANGEL GILLIAM : [birth year] [place]US : [place] [facility] [place]#: [id number] AGE: 77 ADM/REG DATE : 07/17/17 MR#: [id number] REPORT SERV DATE: 07/17/17 DICTATED BY: BRENNAN LOPEZ. DATE: 07/17/17 REPORT STATUS : Draft TRANSCRIBED BY: [facility] DATE: 07/17/17 normal activities tomorrow. Written discharge instructions were provided to the patient. - Continue present medications. Procedure Code(s): --- Professional --- 52423, Colonoscopy, flexible, proximal to splenic flexure; with biopsy, single or multiple Diagnosis Code(s): --- Professional --- K64.0, First degree hemorrhoids K52.9, Noninfective gastroenteritis and colitis, unspecified CPT copyright 2013 [employer]. All rights reserved. The codes documented in this report are preliminary and upon outpatient psychiatrist review may be revised to meet current compliance requirements. Brennan Lopez MD BRENNAN LOPEZ MD 07/17/2017 8:01 AM This report has been signed electronically. Number of Addenda: 0 Note Initiated On: 07/17/2017 7:24 AM Scope Withdrawal Time 0 hours 7 minutes 34 seconds [address] [place] [address]
--- NOTE | ~2017-07-17 | EGD ---
EGD REPORT [facility] [address] [address] NAME: ANGEL GILLIAM : 36 STATUS : REG [facility]#: [id number] AGE: 77 ADM/REG DATE : 07/17/17 MR#: [id number] REPORT SERV DATE: 07/17/17 DICTATED BY: BRENNAN LOPEZ DATE: 07/17/17 REPORT STATUS : Draft [facility]IB[facility]: [facility] DATE: 07/17/17 Endoscopy Center Patient Name: Angel Gilliam Date of : 1940 Attending MD: BRENNAN LOPEZ MD Procedure Date No Time: 07/17/2017 Procedure: Upper GI endoscopy Indications: Dysphagia, Diarrhea Referring MD: Amanda Asif Medicines: Propofol per Anesthesia Complications: No immediate complications. Procedure: Pre-Anesthesia Assessment: - ASA Grade Assessment: III - A patient with severe systemic disease. After obtaining informed consent, the endoscope was passed under direct vision. Throughout the procedure, the patient's blood pressure, pulse, and oxygen saturations were monitored continuously. The GIF [id number] was introduced through the mouth, and advanced to the second part of duodenum. The upper GI endoscopy was accomplished without difficulty. The patient tolerated the procedure well. Findings: A small hiatus hernia was present. A mild Schatzki ring (acquired) was found at the gastroesophageal junction. A guidewire was placed and the scope was withdrawn. Dilation was performed with a Savary dilator with no resistance at 51 Fr and no resistance at 54 Fr. Diffuse moderate inflammation characterized by erosions, erythema and friability was found in the stomach. Biopsies were taken with a cold forceps for histology. The examined duodenum was normal. Biopsies were taken with a cold forceps for histology. Impression: - Hiatus hernia. - Mild Schatzki ring. Dilated. - Chronic gastritis. Biopsied. - Normal examined duodenum. Biopsied. Recommendation: - Patient has a contact number available for emergencies. The signs and symptoms of potential delayed complications were discussed with the patient. Return to normal activities tomorrow. Written discharge instructions were provided to the patient. EGD REPORT [address] [place]. [address] NAME: ANGEL GILLIAM : 36 STATUS : REG [facility] PAT#: [id number] AGE: 77 ADM/REG DATE : 07/17/17 MR#: [id number] REPORT SERV DATE: 07/17/17 DICTATED BY: BRENNAN LOPEZ DATE: 07/17/17 REPORT STATUS : Draft TRANSCRIBED BY: [facility] DATE: 07/17/17 - Patient has a contact number available for emergencies. The signs and symptoms of potential delayed complications were discussed with the patient. Return to normal activities tomorrow. Written discharge instructions were provided to the patient. - Patient has a contact number available for emergencies. The signs and symptoms of potential delayed complications were discussed with the patient. Return to normal activities tomorrow. Written discharge instructions were provided to the patient. - Clear liquid diet. - Patient has a contact number available for emergencies. The signs and symptoms of potential delayed complications were discussed with the patient. Return to normal activities tomorrow. Written discharge instructions were provided to the patient. - Continue present medications. Procedure Code(s): --- Professional --- 61577, Esophagogastroduodenoscopy, flexible, transoral; with insertion of guide wire followed by passage of dilator(s) through esophagus over guide wire 42710, Esophagogastroduodenoscopy, flexible, transoral; with biopsy, single or multiple Diagnosis Code(s): --- Professional --- K44.9, Diaphragmatic hernia without obstruction or gangrene K22.2, Esophageal obstruction K29.50, Unspecified chronic gastritis without bleeding R13.10, Dysphagia, unspecified R19.7, Diarrhea, unspecified CPT copyright 2013 [employer]. All rights reserved. The codes documented in this report are preliminary and upon electronic gluing machine operator review may be revised to meet current compliance requirements. Brennan Lopez MD BRENNAN LOPEZ MD 07/17/2017 7:43 AM This report has been signed electronically. Number of Addenda: 0 Note Initiated On: 07/17/2017 7:32 AM EGD REPORT [facility] [address] [address] NAME: ANGEL GILLIAM : 36 STATUS : REG [facility] [place] PAT#: [id number] AGE: 77 ADM/REG DATE : 07/17/17 MR#: [id number] REPORT SERV DATE: 07/17/17 DICTATED BY: BRENNAN LOPEZ. DATE: 07/17/17 REPORT STATUS : Draft TRANSCRIBED BY: [facility] DATE: 07/17/17 Scope Withdrawal Time 0 hours 0 minutes 0 seconds [address] [place] [id number]
[~2017-07-17 05:53] MED LIST changes: +ARICEPT10 PO; +B1100 PO; +DIOV80 PO; +DSS PO; +MAGOX4 PO; +MCZ125 PO; +MELATONIN5 M1 PO; +T PO; +VITAMIN B-122500 MCG SL
== END 2017-07-17 23:59 | disposition home or self-care (01) ==
LOC: DMU 05:53
PROVIDERS: Internal Medicine Gastroenterology
PROC: 0DBE8ZX Excision of Large Intestine, Via Natural or Artificial Opening Endoscopic, Diagnostic (ICD-10-PCS; 2017-07-17)
PROC: 0DB98ZX Excision of Duodenum, Via Natural or Artificial Opening Endoscopic, Diagnostic (ICD-10-PCS; principal; 2017-07-17 07:30)
PROC: 0DB68ZX Excision of Stomach, Via Natural or Artificial Opening Endoscopic, Diagnostic (ICD-10-PCS; 2017-07-17 07:30)
PROC: 0D758ZZ Dilation of Esophagus, Via Natural or Artificial Opening Endoscopic (ICD-10-PCS; 2017-07-17 07:30)
DX: K22.2 Esophageal obstruction (principal); K52.9 Noninfective gastroenteritis and colitis, unspecified; K44.9 Diaphragmatic hernia without obstruction or gangrene; K64.0 First degree hemorrhoids; I10 Essential (primary) hypertension; I25.10 Atherosclerotic heart disease of native coronary artery without angina pectoris; K21.9 Gastro-esophageal reflux disease without esophagitis; M06.9 Rheumatoid arthritis, unspecified; F03.90 Unspecified dementia, unspecified severity, without behavioral disturbance, psychotic disturbance, mood disturbance, and anxiety; Z79.82 Long term (current) use of aspirin; Z95.1 Presence of aortocoronary bypass graft; Z79.52 Long term (current) use of systemic steroids; Z90.710 Acquired absence of both cervix and uterus; Z90.49 Acquired absence of other specified parts of digestive tract; Z90.89 Acquired absence of other organs; Z98.41 Cataract extraction status, right eye; Z98.42 Cataract extraction status, left eye; Z96.1 Presence of intraocular lens; Z98.890 Other specified postprocedural states; Z79.899 Other long term (current) drug therapy
CPT/HCPCS: 88305